=== PATIENT | female | born 1940 | race Caucasian/White ===

== ENCOUNTER 2020-09-01 12:23 | Emergency (ER) | payer OTHER, MEDICARE ==
[2020-09-01 12:40] VITALS: BP 139/67; PULSE 83; TEMP 98.6; BMI 22.1
== END 2020-09-01 14:08 | disposition home or self-care (01) ==
LOC: FER 12:23
DX: R20.2 Paresthesia of skin (principal)
CPT/HCPCS: 82962; 93005; 99284-25